=== PATIENT | female | born 1980 | race American Indian/Alaskan Native ===

== ENCOUNTER 2017-02-09 19:18 | Emergency (ER) | payer MEDICAID ==
[2017-02-09] MEDS ORDERED: Sodium Chloride 0.9% 10 ML Syringe FLUSH PRN (19:47)
[2017-02-09] MEDS ORDERED: Sodium Chloride 0.9% 1,000 ML IV SCH (20:00)
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
[2017-02-09 22:05] VITALS: BP 122/83
== END 2017-02-09 22:21 ==
LOC: JP.ED 19:18
DX: F10.129 Alcohol abuse with intoxication, unspecified (principal); T50.904A Poisoning by unspecified drugs, medicaments and biological substances, undetermined, initial encounter; E11.65 Type 2 diabetes mellitus with hyperglycemia; R40.0 Somnolence; I10 Essential (primary) hypertension; J45.909 Unspecified asthma, uncomplicated; F41.0 Panic disorder [episodic paroxysmal anxiety]; F31.9 Bipolar disorder, unspecified; E11.9 Type 2 diabetes mellitus without complications; Z85.43 Personal history of malignant neoplasm of ovary; Z79.4 Long term (current) use of insulin; Z79.899 Other long term (current) drug therapy; Z88.0 Allergy status to penicillin; Z88.1 Allergy status to other antibiotic agents; Z88.2 Allergy status to sulfonamides; Z90.49 Acquired absence of other specified parts of digestive tract; Z98.890 Other specified postprocedural states
CPT/HCPCS: 36415; 80053; 80305; 81001; 81025; 82803; 85027; 96360; 96361; 99285; G0480; J7040

== ENCOUNTER 2017-08-21 10:13 | Emergency (ER) | payer MEDICAID ==
[2017-08-21] MEDS ORDERED: Lidocaine 4% Top Soln 4 ML LTA Syringe TOP ONE (11:05)
--- NOTE | 2017-08-21 11:23 | EDM.PDOC ---
ED HPI GENERAL MEDICAL PROBLEM - General Chief Complaint: ENT Problem Stated Complaint: EAR INFECTION Time Seen by Provider: 08/21/17 11:01 Source of Information: Reports: Patient, RN Notes Reviewed History Limitations: Reports: No Limitations - History of Present Illness INITIAL COMMENTS - FREE TEXT/NARRATIVE: 36-year-old female presents emergency department today complaint of right ear pain she states is been ongoing for 24 hours no fevers nausea vomiting shortness breath chest pain no dental pain - Related Data Allergies Allergy/AdvReac Type Severity Reaction Status Date / Time amoxicillin trihydrate Allergy Hives Verified 08/21/17 10:17 [From Augmentin] Penicillins Allergy Hives Verified 08/21/17 10:17 potassium clavulanate Allergy Hives Verified 08/21/17 10:17 [From Augmentin] Sulfa (Sulfonamide AdvReac Stomach Verified 08/21/17 10:17 Antibiotics) Upset Home Meds: Home Meds Albuterol Sulfate [Proair Hfa] 2 puff INH Q4HR PRN 06/13/14 [History] Insulin Glarg,Human.Rec.Analog [Lantus] 30 units SQ BEDTIME 06/13/14 [History] buPROPion HCl [Wellbutrin SR] 150 mg PO Q12H 06/13/14 [History] B12/Levomefolate Calcium/B-6 [Foltx Tablet] 1 tab PO DAILY 02/17/15 [History] Cyanocobalamin (Vitamin B12) [Vitamin B12] 1 dose SQ Q30D 02/17/15 [History] Insulin Aspart [Novolog Flexpen] 1 dose SQ ASDIRECTED 02/17/15 [History] Lisinopril 10 mg PO DAILY 02/17/15 [History] hydrOXYzine HCl [hydrOXYzine] 50 mg PO QID 02/17/15 [History] ARIPiprazole [Abilify] 1 tab PO DAILY 09/22/15 [History] FLUoxetine HCl [Prozac] 10 mg PO DAILY 09/22/15 [History] Ciprofloxacin/Dexamethasone [Ciprodex Otic Susp] 4 drop OT BID #1 bottle [Rx] Past Medical History Cardiovascular History: Reports: Hypertension Respiratory History: Reports: Asthma Gastrointestinal History: Reports: Other (See Below) Other Gastrointestinal History: hx ulcer Genitourinary History: Reports: UTI, Recurrent 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/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 History: C sections x3 Musculoskeletal History: Reports: Back Pain, Chronic Neurological History: Reports: Concussion, Head Trauma, Migraines Psychiatric History: Reports: Addiction, Anxiety, Bipolar, Panic Attack Endocrine/Metabolic History: Reports: Diabetes, Type II Oncologic (Cancer) History: Reports: Ovarian Other Oncologic History: recent dx 8 months - Past Surgical History Female Surgical History: Reports: Section Social & Family History - Tobacco Use Smoking Status *Q: Unknown Ever Smoked Years of Tobacco use: 20 Packs/Tins Daily: 1 Used Tobacco, but Quit: No Second Hand Smoke Exposure: No - Caffeine Use Caffeine Use: Reports: Coffee - Alcohol Use Days Per Week of Alcohol Use: 0 - Recreational Drug Use Recreational Drug Use: Yes Recreational Drug Type: Reports: Marijuana/Hashish ED ROS ENT - Review of Systems Review Of Systems: See Below Constitutional: Reports: No Symptoms HEENT: Reports: Ear Pain. Denies: Ear Discharge Respiratory: Reports: No Symptoms Cardiovascular: Reports: No Symptoms GI/Abdominal: Reports: No Symptoms ED EXAM, ENT - Physical Exam Exam: See Below Text/Narrative:: Examination of the right ear the canal is erythematous with edema tympanic membranes clear and rossi, left tympanic membrane clear and rossi Exam Limited By: No Limitations General Appearance: Alert, Mild Distress Course - Orders/Labs/Meds Meds: Medications Discontinued Medications Generic Name Dose Route Start Last Admin Trade Name Bella PRN Reason Stop Dose Admin Lidocaine 4 ml 08/21/17 11:05 Lta 360 Kit Top Soln TOP 08/21/17 11:06 ONETIME ONE Departure - Departure Time of Disposition: 11:22 Disposition: Eloped 07 Condition: Fair Clinical Impression: Otitis externa Qualifiers: Otitis externa type: diffuse Chronicity: acute Laterality: right Qualified Code (s): H60.311 - Diffuse otitis externa, right ear - Discharge Information Prescriptions: Ciprofloxacin/Dexamethasone [Ciprodex Otic Susp] 4 drop OT BID #1 bottle Referrals: PCP,None [Primary Care Provider] - - Assessment/Plan Plan: Assessment Acuity = acute Site and laterality = right otitis externa Etiology = probable bacterial cause Manifestations = otalgia Location of injury = Home Lab values = none Plan Plan I had written for lidocaine drops for pain in combination with Ciprodex unfortunately she left before discharge or before treatment could be provided she asked that the medications be faxed to her pharmacy in [place] Patient was in agreement with the plan all questions were answered, they were instructed to return to the emergency department or call for worsening symptoms. This note was dictated using [employer] voice recognition software please call with any questions.
== END 2017-08-21 11:10 | disposition left against medical advice (07) ==
LOC: JP.ED 10:13
DX: H60.311 Diffuse otitis externa, right ear (principal); I10 Essential (primary) hypertension; E11.9 Type 2 diabetes mellitus without complications; Z88.0 Allergy status to penicillin; Z88.1 Allergy status to other antibiotic agents; Z88.2 Allergy status to sulfonamides; Z79.4 Long term (current) use of insulin; Z79.899 Other long term (current) drug therapy
CPT/HCPCS: 99283; A9270

== ENCOUNTER 2021-01-17 11:14 | Emergency (ER) | payer MEDICAID, MEDICARE ==
[2021-01-17 11:44] VITALS: BP 181/102; PULSE 102
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
--- NOTE | 2021-01-19 09:40 | CR ---
Wrist Comp Min 3V Lt, Fingers Third Digit Rt F7 CLINICAL HISTORY: Injury FINDINGS: There is some mild irregularity of the trabecular pattern through the scaphoid waist on a single view. A definite fracture line is not identified. This likely represents some overlap. IMPRESSION: Mild irregularity of the scaphoid without definite fracture line Fingers Third Digit Rt F7 CLINICAL HISTORY: Injury FINDINGS: There is no acute fracture or dislocation of the fingers IMPRESSION: No fracture seen
== END 2021-01-17 13:18 | disposition home or self-care (01) ==
LOC: JP.ED 11:14
DX: S63.502A Unspecified sprain of left wrist, initial encounter (principal); M65.331 Trigger finger, right middle finger; I10 Essential (primary) hypertension; J45.909 Unspecified asthma, uncomplicated; E11.9 Type 2 diabetes mellitus without complications; Z79.4 Long term (current) use of insulin; Z79.899 Other long term (current) drug therapy; Z72.0 Tobacco use; Z88.1 Allergy status to other antibiotic agents; Z88.2 Allergy status to sulfonamides; Y04.0XXA Assault by unarmed brawl or fight, initial encounter; Z88.0 Allergy status to penicillin
CPT/HCPCS: 73110-26-LT; 73110-LT; 73140-26-F7; 73140-F7; 99282; 99283-25

== ENCOUNTER 2021-03-09 04:19 | Emergency (ER) | payer MEDICARE, MEDICAID ==
[2021-03-09 04:22] VITALS: BP 172/111; PULSE 95
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
[2021-03-09] MEDS ORDERED: Ondansetron 4 MG Tab.DIS PO ONE (05:46)
== END 2021-03-09 05:55 ==
LOC: JP.ED 04:19
DX: G40.909 Epilepsy, unspecified, not intractable, without status epilepticus (principal); I10 Essential (primary) hypertension; E11.9 Type 2 diabetes mellitus without complications; E66.9 Obesity, unspecified; Z68.30 Body mass index [BMI] 30.0-30.9, adult; Z72.0 Tobacco use; Z88.0 Allergy status to penicillin; Z88.2 Allergy status to sulfonamides; Z88.6 Allergy status to analgesic agent
CPT/HCPCS: 36415; 80053; 80305; 81001; 85025; 87086; 99284; A9270